=== PATIENT | female | born 1970 | race Caucasian/White ===

== ENCOUNTER 2016-12-20 16:45 | Emergency (ER) | payer MEDICAID ==
[2014-08-23 10:08] VITALS: BMI 27.8
[~2016-12-20 16:45] MED LIST: ACETAMINOPHEN325 MG PO; ACIDOPHILUS LAC1 CAP PO; BENADRYL 2% CRE30 GM TOPICAL; CARAFATE1 G PO; LEVAQUIN750 MG PO; MUCINEX600 MG PO; NICODERM C1 PATCH .3 TRANSDERM; PHENERGAN25 M1 PO; PROAIR HFA8.5 GM INH; PROTONIX40 MG PO; STERAPRED DS 1010 MG PO; TESSALON PERLE100 MG; TESSALON PERLE100 MG PO; TUSSIONEX PENN473 ML PO; ULTRAM50 MG PO; XANAX0.5 MG PO; ZOFRAN ODT4 MG/UDTAB PO
[2016-12-20 19:56] LABS: BASOPHILS 0.2 % (0-2); EOSINOPHILS 0.7 % (0-7); HEMATOCRIT 39.3 % (36.0-48.0); HEMOGLOBIN 13.5 g/dL (12-16); IMMATURE GRANULOCYTES 0.1 % (0-5); LYMPHOCYTES 33.4 % (15-50); MCH 30.5 pg (26.0-34.0); MCHC 34.4 g/dL (31.0-37.0); MCV 88.9 fL (80.0-100.0); MEAN PLATELET VOLUME 11.5 fL (7.4-10.4); MONOCYTES 4.6 % (2-11); PLATELET COUNT 205 10x3/uL (130-400); RBC 4.42 10x6/uL (4.00-5.40); RDW 13.3 % (11.5-14.5); WBC 10.2 10x3/uL (4.8-10.8)
[2016-12-20 20:16] LABS: ALKALINE PHOSPHATASE 57 U/L (46-116); ALT (SGPT) 16 U/L (10-68); BILIRUBIN - TOTAL 0.41 mg/dL (0.2-1.3); CALC OSMOLALITY 282 mosm/kg (275-300); CHLORIDE - SERUM 106 mmol/L (98-107); CREATININE - SERUM 0.8 mg/dL (0.6-1.3); GLUCOSE 88 mg/dL (74-106); POTASSIUM - SERUM 3.9 mmol/L (3.5-5.1); PROTEIN - SERUM 7.7 g/dL (6.4-8.2); SODIUM 142 mmol/L (136-145); UREA NITROGEN 16 mg/dL (7-18); eGFR NON AFRICAN AMERICAN 82 mL/min (90-120)
== END 2016-12-20 22:01 | disposition home or self-care (01) ==
LOC: D.ER 16:45
PROVIDERS: Family Medicine
DX: R20.2 Paresthesia of skin (principal); J44.9 Chronic obstructive pulmonary disease, unspecified; K21.9 Gastro-esophageal reflux disease without esophagitis; G40.909 Epilepsy, unspecified, not intractable, without status epilepticus